=== PATIENT | male | born 1950 | race Caucasian/White ===

== ENCOUNTER → 2019-04-13 | Outpatient (CLI) | payer MEDICARE, OTHER ==
[~2019-04-13] MED LIST: CHOL100011 PO; CYAN1TAB29 PO; EMPA25TA PO; FENO145T32 PO; LISI-170 PO; METF500T17 PO; SIMV40TA3 PO
[2019-04-13 10:19] LABS: BASOPHILS # (AUTO) 0.05 x10^3/uL (0-0.1); BASOPHILS % (AUTO) 1 % (0-1); EOSINOPHILS # (AUTO) 0.35 x10^3/uL (0-0.4); EOSINOPHILS % (AUTO) 5 % (1-7); LYMPHOCYTES # (AUTO) 2.13 x10^3/uL (1-3.4); LYMPHOCYTES % (AUTO) 29 % (22-44); MD NO; MEAN CORPUSCULAR HGB CONC 32.7 g/dL (33.2-36.2); MEAN CORPUSCULAR VOLUME 88.6 fL (81-97); MEAN PLATELET VOLUME 8.5 fL (7.4-10.4); MONOCYTES # (AUTO) 0.82 x10^3/uL (0.2-0.8); MONOCYTES % (AUTO) 11 % (2-9); NEUTROPHILS # (AUTO) 4.12 x10^3/uL (1.8-6.8); NEUTROPHILS % (AUTO) 55 % (42-75); PLATELET COUNT 265 x10^3/uL (130-400); RED BLOOD COUNT 5.49 x10^6/uL (4.38-5.82); RED CELL DISTRIBUTION WIDTH 14.6 % (9.4-14.8)
[2019-04-13 10:24] LABS: MICROSCOPIC NOT IND
[2019-04-13 10:24] LABS: INTERNATIONAL NORMALIZED RATIO 0.91 (0.93-1.1); PROTHROMBIN TIME 9.6 Seconds (9.6-11.5)
[2019-04-13 10:26] LABS: ALANINE AMINOTRANSFERASE 30 U/L (12-78); ALBUMIN 4.2 g/dL (3.4-5.0); ANION GAP 9 mmol/L (5-15); CHLORIDE 105 mmol/L (98-107)
[2019-04-13 10:28] LABS: ALKALINE PHOSPHATASE 47 U/L (45-117); BILIRUBIN,TOTAL 0.4 mg/dL (0.2-1.0); TOTAL PROTEIN 7.9 g/dL (6.4-8.2)
== END | disposition home or self-care (01) ==
LOC: STAR 09:03
PROVIDERS: ATTEND Student in an Organized Health Care Education/Training Program
DX: Z01.818 Encounter for other preprocedural examination (principal); N28.89 Other specified disorders of kidney and ureter; Z79.899 Other long term (current) drug therapy
CPT/HCPCS: 36415; 80053; 81003; 83036; 85025; 85610; 85730; 87086; 93005

== ENCOUNTER 2019-04-22 05:39 | Inpatient (IN) | payer MEDICARE, OTHER ==
[~2019-04-22] VITALS: Ht 160 cm; Wt 96.8 kg
[~2019-04-22 05:39] MED LIST changes: +SIMV40TA20 PO; -SIMV40TA3 PO
[2019-04-22] MEDS ORDERED: LACTATED RINGERS 1,000 ML IV SCH (06:28)
[2019-04-22] MEDS ORDERED: OxyconTIN ER 10 MG TAB.ER PO ONE (06:30)
[2019-04-22] MEDS ORDERED: ACETAMINOPHEN 500 MG TABLET PO ONE (06:30)
[2019-04-22] MEDS ORDERED: LIDOCAINE-MPF 1%, 2ML INFIL ONE (06:30)
[2019-04-22] MEDS ORDERED: BUPIVACAINE/PF-EPI 0.25% 1:200K ONE (06:33)
[2019-04-22] MEDS ORDERED: INDIGO CARMINE 0.8%, 5ML ONE (06:33)
[2019-04-22] MEDS ORDERED: FUROSEMIDE 20 MG/2 ML ONE (06:33)
[2019-04-22] MEDS ORDERED: THROMBIN 5,000 UNIT VIAL TP ONE (06:34)
[2019-04-22] MEDS ORDERED: MANNITOL PMX 20% 500 ML ONE (06:34)
[2019-04-22] MEDS ORDERED: MIDAZOLAM 1 MG/ML, 2ML ONE (07:00)
[2019-04-22] MEDS ORDERED: FENTANYL PF 250 MCG/5ML ONE ×2 (07:00→08:39)
[2019-04-22] MEDS ORDERED: PHENYLEPHRINE 10 MG/ML ONE (07:37)
[2019-04-22] MEDS ORDERED: PROMETHAZINE 25 MG/ML, 1ML IV PRN (08:30)
[2019-04-22] MEDS ORDERED: HYDROmorphone 1 MG/ML, 1ML INJ IVPush PRN (08:30)
[2019-04-22] MEDS ORDERED: ALBUTEROL/IPRATROPIUM 2.5MG/0.5MG, 3 ML NPPB PRN (08:30)
[2019-04-22] MEDS ORDERED: hydrALAzine 20 MG/ML, 1ML IV PRN (08:30)
[2019-04-22] MEDS ORDERED: ACETAMINOPHEN 325 MG TABLET PO PRN (08:30)
[2019-04-22] MEDS ORDERED: FENTANYL PF 100 MCG/2ML IV PRN (08:30)
[2019-04-22] MEDS ORDERED: MEPERIDINE/PF 25MG/ML,1ML IVPush PRN (08:30)
[2019-04-22] MEDS ORDERED: OXYcodone 5 MG/5 ML ORAL.SOL UDC PO PRN ×2 (08:30→12:30)
[2019-04-22] MEDS ORDERED: MIDAZOLAM 1 MG/ML, 2ML IV PRN (08:30)
[2019-04-22] MEDS ORDERED: NEOSTIGMINE 1 MG/ML, 10ML ONE (08:49)
[2019-04-22] MEDS ORDERED: DEXAMETHASONE 4 MG/ML, 1ML ONE (08:49)
[2019-04-22] MEDS ORDERED: CEFAZOLIN 1,000 MG ONE (08:49)
[2019-04-22] MEDS ORDERED: ONDANSETRON 2MG/ML, 2ML ONE (08:49)
[2019-04-22] MEDS ORDERED: GLYCOPYRROLATE 0.2MG/1ML, 5ML ONE (08:49)
[2019-04-22] MEDS ORDERED: ROCURONIUM 10MG/ML,5ML ONE (08:49)
[2019-04-22] MEDS ORDERED: PROPOFOL 10 MG/ML, 20ML ONE (08:49)
[2019-04-22] MEDS ORDERED: LIDOCAINE-MPF 2% ,5ML ONE (08:49)
[2019-04-22] MEDS ORDERED: HEPARIN 5,000 UNITS/ML, 1ML SQ SCH (12:30)
[2019-04-22] MEDS ORDERED: ONDANSETRON 2MG/ML, 2ML IV PRN (12:30)
[2019-04-22] MEDS ORDERED: LABETALOL 5MG/ML, 20ML ONE (12:36)
[2019-04-22] MEDS ORDERED: METOPROLOL 1 MG/ML, 5ML ONE (12:37)
[2019-04-22] MEDS: METOPROLOL 1 MG/ML, 5ML IV PRN ×2 (12:40→12:52)
[2019-04-22] MEDS ORDERED: hydrALAzine 20 MG/ML, 1ML ONE (12:54)
[2019-04-22 13:24] LABS: ALBUMIN 3.4 g/dL (3.4-5.0); ANION GAP 6 mmol/L (5-15); CALCIUM 7.9 mg/dL (8.5-10.1); CHLORIDE 106 mmol/L (98-107); CREATININE 1.58 mg/dL (0.7-1.3)
[2019-04-22 13:50] VITALS: BP 147/86
[2019-04-22] MEDS: ACETAMINOPHEN 325 MG TABLET PO SCH ×2 (14:26→20:30)
[2019-04-22] MEDS: SODIUM CHLORIDE 0.9% 1,000 ML IV SCH ×2 (14:30→19:44)
[2019-04-22] MEDS: DOCUSATE 100 MG CAPSULE PO SCH (19:51)
[2019-04-22] MEDS: SIMVASTATIN 40 MG TABLET PO SCH (19:51)
[2019-04-22 19:57] VITALS: BP 161/88
[2019-04-22] MEDS: HYDROmorphone 1 MG/ML, 1ML INJ IV PRN ×2 (20:00→23:44)
[2019-04-22 23:41] VITALS: BP 143/83
[2019-04-23] MEDS: ACETAMINOPHEN 325 MG TABLET PO SCH ×4 (02:30→20:04)
[2019-04-23] MEDS: SODIUM CHLORIDE 0.9% 1,000 ML IV SCH ×3 (03:02→22:30)
[2019-04-23] MEDS: OXYcodone 5 MG/5 ML ORAL.SOL UDC PO PRN ×5 (03:08→23:17)
[2019-04-23 04:07] VITALS: BP 143/77
[2019-04-23 05:25] LABS: ANION GAP 7 mmol/L (5-15); CALCIUM 7.6 mg/dL (8.5-10.1); CHLORIDE 109 mmol/L (98-107)
[2019-04-23 08:29] VITALS: BP 143/81
[2019-04-23] MEDS: HEPARIN 5,000 UNITS/ML, 1ML SQ SCH ×3 (08:29→23:20)
[2019-04-23] MEDS: POLYETHYLENE GLYCOL 17 GM PACKET PO SCH (08:41)
[2019-04-23] MEDS: DOCUSATE 100 MG CAPSULE PO SCH ×2 (08:41→20:04)
[2019-04-23 13:01] LABS: BASOPHILS # (AUTO) 0.03 x10^3/uL (0-0.1); BASOPHILS % (AUTO) 0 % (0-1); EOSINOPHILS # (AUTO) 0.08 x10^3/uL (0-0.4); EOSINOPHILS % (AUTO) 1 % (1-7); LYMPHOCYTES # (AUTO) 1.48 x10^3/uL (1-3.4); LYMPHOCYTES % (AUTO) 16 % (22-44); MD NO; MEAN CORPUSCULAR HEMOGLOBIN 28.9 pg (27.5-34.5); MEAN CORPUSCULAR HGB CONC 32.8 g/dL (33.2-36.2); MEAN CORPUSCULAR VOLUME 88.1 fL (81-97); MEAN PLATELET VOLUME 8.3 fL (7.4-10.4); MONOCYTES # (AUTO) 0.99 x10^3/uL (0.2-0.8); MONOCYTES % (AUTO) 11 % (2-9); NEUTROPHILS # (AUTO) 6.69 x10^3/uL (1.8-6.8); NEUTROPHILS % (AUTO) 72 % (42-75); PLATELET COUNT 225 x10^3/uL (130-400); RED BLOOD COUNT 4.53 x10^6/uL (4.38-5.82); RED CELL DISTRIBUTION WIDTH 14.4 % (9.4-14.8)
[2019-04-23 13:07] LABS: ANION GAP 7 mmol/L (5-15); CHLORIDE 109 mmol/L (98-107); CREATININE 1.39 mg/dL (0.7-1.3)
[2019-04-23 13:18] VITALS: BP 146/77
[2019-04-23 16:39] VITALS: BP 143/81
[2019-04-23] MEDS: SIMVASTATIN 40 MG TABLET PO SCH (20:04)
[2019-04-23 20:15] VITALS: BP 151/81
[2019-04-23 23:18] VITALS: BP 132/76
[2019-04-24] MEDS: ACETAMINOPHEN 325 MG TABLET PO SCH ×3 (02:36→14:57)
[2019-04-24 04:31] VITALS: BP 138/81
[2019-04-24] MEDS: OXYcodone 5 MG/5 ML ORAL.SOL UDC PO PRN ×2 (04:52→12:44)
[2019-04-24 06:04] LABS: ANION GAP 5 mmol/L (5-15); CALCIUM 8.3 mg/dL (8.5-10.1); CHLORIDE 108 mmol/L (98-107); CREATININE 1.15 mg/dL (0.7-1.3)
[2019-04-24] MEDS: SODIUM CHLORIDE 0.9% 1,000 ML IV SCH ×2 (06:27→14:30)
[2019-04-24] MEDS: DOCUSATE 100 MG CAPSULE PO SCH (08:16)
[2019-04-24] MEDS: POLYETHYLENE GLYCOL 17 GM PACKET PO SCH (08:17)
[2019-04-24] MEDS: HEPARIN 5,000 UNITS/ML, 1ML SQ SCH (08:17)
[2019-04-24 08:20] VITALS: BP 155/88
[2019-04-24] MEDS ORDERED: OXYC5CAP2 PO (12:16)
[2019-04-24 12:30] VITALS: BP 163/83
== END 2019-04-24 15:43 | disposition home or self-care (01) | DRG 656 ==
LOC: OUT 05:39 → 4NE 13:56 → OUT 14:07 → DCLOUNGE 04-24 15:35
PROVIDERS: ADMIT Student in an Organized Health Care Education/Training Program; ATTEND Student in an Organized Health Care Education/Training Program
PROC: 8E0W4CZ Robotic Assisted Procedure of Trunk Region, Percutaneous Endoscopic Approach (ICD-10-PCS; 2019-04-22)
PROC: 0TN Urinary System, Release (ICD-10-PCS; 2019-04-22)
PROC: BT42ZZZ Ultrasonography of Left Kidney (ICD-10-PCS; 2019-04-22)
PROC: 0TB14ZZ Excision of Left Kidney, Percutaneous Endoscopic Approach (ICD-10-PCS; principal; 2019-04-22 07:30)
DX: C64.2 Malignant neoplasm of left kidney, except renal pelvis (principal); N17.0 Acute kidney failure with tubular necrosis; N18.3 Chronic kidney disease, stage 3 (moderate); I12.9 Hypertensive chronic kidney disease with stage 1 through stage 4 chronic kidney disease, or unspecified chronic kidney disease; G47.33 Obstructive sleep apnea (adult) (pediatric); E11.22 Type 2 diabetes mellitus with diabetic chronic kidney disease; E78.5 Hyperlipidemia, unspecified; Z79.899 Other long term (current) drug therapy
CPT/HCPCS: 36415; 80048; 82040; 82962; 85014; 85018; 85025; 86850; 86900; 86923; 88307; 88341; 88342; C1729; G0378; J0690; J1100; J1170; J1644; J2250; J2405; J2704; J2710; J3010; C1760; J0360; J1940; J2370; J7030; J7120